=== PATIENT | female | born 1980 | race Caucasian/White ===

== ENCOUNTER 2021-05-06 21:18 | Emergency (ER) | payer OTHER ==
[~2021-05-06] VITALS: Ht 157.5 cm; Wt 75.7 kg
[2021-05-06 22:01] VITALS: BP 127/81
--- NOTE | 2021-05-07 00:40 | NUR ---
Patient evaluated by Dr. Ashby. No nursing care provided to patient. Patient given discharge instructions by Dr. Ashby. All questions asked and answered prior to discharge
== END 2021-05-07 00:40 | disposition home or self-care (01) ==
LOC: MED 21:18
DX: Z00.00 Encounter for general adult medical examination without abnormal findings (principal)
CPT/HCPCS: 99283